=== PATIENT | female | born 1970 | race Caucasian/White ===

== ENCOUNTER 2024-10-26 10:51 | Emergency (ER) | payer OTHER ==
[~2024-10-26] VITALS: Ht 177.8 cm; Wt 98.0 kg
[2024-10-26 11:31] VITALS: BP 136/94; PULSE 88; RESP 16; TEMP 97.5; O2SAT 96
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
--- NOTE | 2024-10-26 13:05 | DVH ---
CLINICAL INDICATION: , trauma, pain fall TECHNIQUE: XY L SHOULDER 2+ VIEW XRAY Comparison: None FINDINGS/IMPRESSION: : There is no evidence of acute fracture or dislocation. Soft tissues are unremarkable.
--- NOTE | 2024-10-26 13:10 | DVH ---
EXAM: CT HEAD WITHOUT CONTRAST HISTORY: fall COMPARISON: None TECHNIQUE: Axial images were obtained and reformatted in coronal and sagittal planes. All CT scans at this medical facility are performed using dose modulation techniques as appropriate t o a performed exam including the following: Automated exposure control was utilized; adjustment of th e MA and/or KV according to patient size; and use of iterative reconstruction technique. CT Dose: CTDI volume is 54 mGy. Dose-length product is 1591 mGy*cm FINDINGS: Supratentorial Region: No evidence for large acute territorial ischemia. No intracranial hemorrhage is noted. Posterior Fossa: No acute abnormality. Brainstem: Unremarkable. Sellar/Suprasellar Region: Unremarkable. Ventricles, Cisterns, Sulci: Age-appropriate. Orbits: Unremarkable. Paranasal Sinuses: Unremarkable. Mastoid Air Cells: Unremarkable. Vasculature: Unremarkable. Bones/Soft Tissues: No acute abnormality. Other: None. IMPRESSION: 1. No acute intracranial process.
--- NOTE | 2024-10-26 13:14 | DVH ---
Procedure: CT CERVICAL WITHOUT CONTRAST 10/26/2024 12:37 PM Indication: fall Comparison Study: None. Technique: Axial images were obtained and reformatted in coronal and sagittal planes. All CT scans at this medical facility are performed using dose modulation techniques as appropriate t o a performed exam including the following: Automated exposure control was utilized; adjustment of th e MA and/or KV according to patient size; and use of iterative reconstruction technique. CT Dose: CTDI volume is 23 mGy. Dose-length product is 115 mGy*cm FINDINGS: Bones: The vertebrae are normal in height. Normal alignment of the vertebrae. Lateral masses C1 and C2 are well aligned. The posterior facet joints are well aligned. Disc spaces are maintained. No disc ogenic endplate change noted. The posterior facet joints are unremarkable. Soft tissues: Paraspinal and prevertebral soft tissues are within normal limits. IMPRESSION: 1. Straightening of normal lordosis that could be positional, reflect muscle spasm or pain. Correlate clinically. 2. No acute osseous abnormality.
--- NOTE | 2024-10-26 13:23 | DVH ---
Procedure: CT LS SPINE WO CONTRAST 10/26/2024 12:40 PM Indication: fall Comparison Study: None. Technique: Axial images were obtained and reformatted in coronal and sagittal planes. All CT scans at this medical facility are performed using dose modulation techniques as appropriate t o a performed exam including the following: Automated exposure control was utilized; adjustment of th e MA and/or KV according to patient size; and use of iterative reconstruction technique. CT Dose: CTDI volume is 36.09 mGy. Dose-length product is 1126.56 mGy*cm FINDINGS: Bones: The vertebra are normal in height. Normal alignment noted. A 2.8 cm benign hemangioma noted i n L3 vertebral body with extension to the left pedicle. Disc spaces are maintained. No significant di scogenic endplate change. The posterior facet joints are unremarkable. The sacroiliac joints are ma intained. Soft tissues: Paraspinal soft tissues are within normal limits. Other: None. IMPRESSION: 1. No acute fracture or subluxation. 2. A 2.8 cm benign-appearing L3 hemangioma.
[2024-10-26] MEDS ORDERED: CYCL-839 PO (13:44)
[2024-10-26] MEDS ORDERED: DICL50TA2 PO (13:44)
[2024-10-26] MEDS: KETOROLAC TROMETH 60MG/2ML VIAL IM ONE (13:48)
== END 2024-10-26 13:54 | disposition home or self-care (01) ==
LOC: ER 10:51
DX: S09.90XA Unspecified injury of head, initial encounter (principal); M75.52 Bursitis of left shoulder; M62.838 Other muscle spasm; F17.210 Nicotine dependence, cigarettes, uncomplicated; Z98.890 Other specified postprocedural states; Z79.899 Other long term (current) drug therapy; Z88.1 Allergy status to other antibiotic agents; W01.0XXA Fall on same level from slipping, tripping and stumbling without subsequent striking against object, initial encounter; Y93.89 Activity, other specified; Y92.89 Other specified places as the place of occurrence of the external cause; Y99.8 Other external cause status
CPT/HCPCS: 70450; 72125; 72131; 73030; J1885